=== PATIENT | female | born 1960 | race Caucasian/White ===

== ENCOUNTER 2018-03-18 17:37 | Emergency (ER) | payer OTHER ==
--- NOTE | 2018-03-18 18:15 | ED Physician Documentation ---
Abdominal Pain - HISTORIAN Historian: patient - HPI Stated Complaint: RLQ pain Chief Complaint: Abdominal Pain Additonal Information: rt lower quad abd pain at burneys no guarding or rebound heel tap neg Onset: days ago (2) Duration: constant, waxing, waning Timing: worse Context: denies: out of country travel, bad food, recent trauma Severity: moderate Quality: pain, dull, cramping, sharp, stabbing Associated Symptoms: nausea, diarrhea (no bm for several dauys then diarrhea today). denies: vomiting, bloody emesis Exacerbated by: food Relieved by: remaining still (sitting up worse supine) Further Comments: yes (has been constipated then diarrhea today) - ROS CONST: recent illness GI/: constipation (now diarrhea) - SOCIAL HX Smoking History: non-smoker (quit 6 days ago-prev heavy) Alcohol Use: none Drug Use: none - FAMILY HX Family History: no significant history - PAST HX Past History: other (hi chol copd depdression anxiety) Surgeries/Procedures: cholecystectomy Immunizations: other (rt renal reconstruction) Home Medications: Ambulatory Orders Medication Instructions Recorded Lovastatin 40 mg PO D 03/11/13 Buspirone HCl [Buspar] 1 tab PO BID 05/02/16 Allergies/Adverse Reactions: Allergies Allergy/AdvReac Type Severity Reaction Status Date / Time Penicillins Allergy Intermediate Hives Verified 03/18/18 18:08 Sulfa (Sulfonamide Allergy Intermediate Hives Verified 03/18/18 18:08 Antibiotics) [Sulfa(Sulfonamide Antibiotics)] - VITAL SIGNS Vital Signs: Vital Signs Temp Pulse Resp BP Pulse Ox 96.9 F L 111 H 22 119/90 96 03/18/18 17:37 03/18/18 17:37 03/18/18 17:37 03/18/18 17:37 03/18/18 17:37 - REVIEWED ASSESSMENTS Nursing Assessment Reviewed: Yes Vitals Reviewed: Yes ED Results Lab/Radiology - Lab Results Lab Results: Lab Results 03/18/18 03/18/18 03/18/18 18:25 18:25 18:25 WBC 7.80 K/ul K/ul (4.00-12.00) RBC 5.11 M/ul M/ul (3.90-5.20) Hgb 15.4 g/dL g/dL (12.0-16.0) Hct 45.8 % % (34.5-46.5) MCV 89.6 fl fl (80.0-100.0) MCH 30.2 pg pg (28.0-34.0) MCHC 33.7 g/dL g/dL (30.0-36.0) RDW 12.4 % % (11.3-14.3) Plt Count 266 K/mm3 K/mm3 (130-400) Neut % (Auto) 67.2 % % (39.0-79.0) Lymph % (Auto) 26.9 % % (16.0-50.0) [place] % (Auto) 3.8 % % (0.0-11.0) Eos % (Auto) 0.7 % % (0.0-6.8) Baso % (Auto) 0.3 (0.0-1.5) Neut # (Auto) 5.2 # k/uL # k/uL (1.4-7.7) Lymph # (Auto) 2.1 # k/uL # k/uL (0.6-4.0) [place] # (Auto) 0.3 # k/uL # k/uL (0.0-0.9) Eos # (Auto) 0.1 # k/uL # k/uL (0.0-0.6) Baso # (Auto) 0.0 # k/uL # k/uL (0.0-0.5) Reactive Lymphs % 1.0 % % (0.0-5.0) Reactive Lymphs # 0.1 # k/uL # k/uL (0.0-0.8) Sodium 138 mmol/L mmol/L (136-145) Potassium 3.7 mmol/L mmol/L (3.5-5.1) Chloride 102 mmol/L mmol/L (98-107) Carbon Dioxide 27 mmol/L mmol/L (22-30) BUN 14 mg/dL mg/dL (7-17) Creatinine 1.00 mg/dL mg/dL (0.52-1.04) Estimated Creat Clear 105 Est GFR ( Amer) > 60 (60 - ) Est GFR (Non-Af Amer) > 60 (60 - ) Glucose 96 mg/dL mg/dL (74-106) Calcium 9.3 mg/dL mg/dL (8.4-10.2) Total Bilirubin 0.1 mg/dL L mg/dL (0.2-1.3) AST 19 U/L U/L (15-46) ALT 35 U/L U/L (13-69) Alkaline Phosphatase 79 U/L U/L (38-126) Total Protein 7.5 g/dL g/dL (6.3-8.2) Albumin 4.2 g/dL g/dL (3.5-5.0) Lipase 82 U/L U/L (23-300) - Radiology Radiology Impressions: non specific xray abdomen will do ct abd pelvis.----radiologists called states thinks villous mass inside cecum-rec colonoscopy surgical eval - Orders Orders: ED Orders Category Date Time Status ABD SERIES PA CHEST [RAD] Stat Exams 03/18/[address] ABDOMEN PELVIS C [CT ABD & PELVIS W/ CON] Stat Exams 03/18/18 Taken CBC/PLATELET/DIFF Routine Lab 03/18/18 18:25 Completed CMP Routine Lab 03/18/18 18:25 Completed LIPASE Stat Lab 03/18/18 18:25 Completed URINALYSIS Routine Lab 03/18/18 Ordered Abdominal Pain Physical Exam - Physical Exam General Appearance: moderate distress EENT: eye inspection normal NECK: normal inspection. No: lymphadenopathy RESPIRATORY: no resp distress, chest non-tender, breath sounds normal CVS: reg rate & rhythm, heart sounds normal ABDOMEN: soft, tenderness (rlq no guarding rebound or pos heel tap), decreased BS BACK: normal inspection SKIN: warm/dry, normal color, diaphoresis. No: cyanosis, jaundice, mottled EXTREMITIES: non-tender, normal range of motion NEURO: oriented X3, motor nml, sensation nml, mood/affect nml Vital Signs: Vital Signs Temp Pulse Resp BP Pulse Ox 96.9 F L 111 H 22 119/90 96 03/18/18 17:37 03/18/18 17:37 03/18/18 17:37 03/18/18 17:37 03/18/18 17:37 Discharge Clincal Impression: villous mass inside cecum Referrals: Abena Meeks, OLIVE KNOCKER [Primary Care Provider] - 2 Days Comments: disc cond/findings w/pt she prefers go home will con tact pcp for f/u-we sent lab and ct plus xray reports w/pt. she understands she will need colonoscopy and surgical consultation. we furthur dayan if sy return go to [facility] ED for eval and definitive care. she is clinically much better now and desires go home. Condition: Fair Disposition: 01 HOME, SELF-CARE Decision to Admit: NO Decision Time: 21:18
[2018-03-18 18:46] LABS: BASOPHILS % 0.3 (0.0-1.5); EOSINOPHILS % 0.7 % (0.0-6.8); MEAN CORPUSCULAR HEMOGLOBIN 30.2 pg (28.0-34.0); MEAN CORPUSCULAR VOLUME 89.6 fl (80.0-100.0); MONOCYTES % 3.8 % (0.0-11.0); NEUTROPHILS # 5.2 # k/uL (1.4-7.7)
[2018-03-18 19:13] LABS: eGFR (African) > 60; eGFR (Non-African) > 60
--- NOTE | 2018-03-18 19:31 | Diagnostic Imaging Report ---
NARESH LINDA [facility] [address] [facility] [address] [address] Report Submission Date: March 18, 2018 7:14:27 PM CDT Patient Study Name: YOVANNY RODRIGUEZ Date: March 18, 2018 6:51:43 PM CDT Modality Type: DX Gender: F Description: CHEST,ABDOMEN : 60 Institution: [facility] Physician: NARESH LINDA ABD SERIES W/ PA CHEST History: RIGHT SIDED ABD PAIN X3-4 DAYS, Findings: The heart size is normal. There is no acute infiltrates. There is no pleural effusion or pneumothorax identified. Calcified granuloma seen the left upper lobe. The bowel gas pattern is normal. Cholecystectomy clips are in place. No free air. Impression: 1. No acute pulmonary disease. 2. Normal bowel gas pattern. Electronically signed on March 18, 2018 7:14:27 PM CDT by: Silver MACHADO
[2018-03-18 21:41] VITALS: BP 119/74
--- NOTE | 2018-03-19 16:52 | Diagnostic Imaging Report ---
NARESH RASMUSSEN [facility] [address] [facility] [address] [place], [place]. [address] Report Submission Date: March 18, 2018 8:19:58 PM CDT Patient Study Name: YOVANNY RODRIGUEZ Date: March 18, 2018 7:45:06 PM CDT Modality Type: CT\SR Gender: F Description: CT ABD PELVIS W/ CON : 60 Institution: [facility] Physician: NARESH RASMUSSEN Computed tomography Abdomen/pelvis with contrast History: 4 days of right lower quadrant pain Findings: Transverse abdomen and pelvis sections are obtained 93 mL intravenous omnipaque 350. Minimal bibasilar atelectasis, cholecystectomy, small left renal cysts, right perinephric surgical clips, mild bilateral renal cortical atrophy, and minimal atherosclerosis are observed. 1.3 cm left adrenal nodule, 1.6 centimeter right adrenal nodule, and 0.8 centimeter right adrenal nodule are observed. Small splenic cysts are present. The pancreas and liver are unremarkable. A 6.5 x 3.3 x 6.2 cm villous appearing enhancing mass is present in the cecum. There is soft tissue thickening or fluid in the ileocecal valve. Fluid is present in normal caliber small bowel loops. There is no evidence of mesenteric adenopathy. Pelvic sections reveal decompressed urinary bladder. Uterus and ovaries are normal in size. Pelvic bowel loops are unremarkable. The appendix is not identified. Impression: 1. Villous mass in the cecum. Recommend colonoscopy. There is soft tissue thickening or fluid in the ileocecal valve region. 2. Mild bilateral renal cortical scarring and right perinephric surgical clips. 3. Bilateral adrenal nodules. Most incidental and renal nodules are adenomas. Critical results discussed with Dr. Rasmussen at [facility] [employer]. Electronically signed on March 18, 2018 8:19:58 PM CDT by: Charles MACHADO
== END 2018-03-18 21:15 | disposition home or self-care (01) ==
LOC: ED 17:37
DX: K63.89 Other specified diseases of intestine (principal)
CPT/HCPCS: 74022; 74177; 80053; 83690; 85025; Q9967; S1016

== ENCOUNTER 2019-08-04 07:58 | Emergency (ER) | payer OTHER ==
[2019-02-07 22:19] VITALS: BP 136/64
[2019-08-04] MEDS ORDERED: KETOROLAC TROMETHAMINE 60 MG/2 ML VIAL IM ONE (09:35)
--- NOTE | 2019-08-23 11:53 | Diagnostic Imaging Report ---
ROJAS LERNER [facility] [address] [facility].[address] [address] Report Submission Date: Aug 04, 2019 7:09:46 PM CDT Patient Study Name: YOVANNY RODRIGUEZ Date: Aug 04, 2019 6:16:27 PM CDT Modality Type: DX Gender: F Description: FOOT 3 VIEWS OR MORE : 60 Institution: [facility] Physician: ROJAS LERNER Exam: Left foot. History: Fall. AP, lateral and oblique view of the left foot are submitted. 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 an acute bony avulsion through the superior aspect of the talus is noted. No other signs of fracture or dislocation is seen. Soft tissue swelling over the midfoot is noted. Impression: Acute bony avulsion off the superior aspect of the talus. Electronically signed on Aug 04, 2019 7:09:46 PM CDT by: Kt MACHADO
--- NOTE | 2019-08-23 11:54 | Diagnostic Imaging Report ---
ROJAS LERNER [facility] [address] [facility].[address] [address] Report Submission Date: Aug 04, 2019 7:10:25 PM CDT Patient Study Name: YOVANNY RODRIGUEZ Date: Aug 04, 2019 6:16:27 PM CDT Modality Type: DX Gender: F Description: ANKLE 3 VIEWS OR MORE : 60 Institution: [facility] Physician: ROJAS LERNER Exam: Left ankle. History: Fall. AP, lateral and mortise view of the left ankle are submitted. Acute bony avulsion off the superior aspect of the talus is noted. No other signs of fracture or dislocation is seen. Mild soft tissue swelling about the ankle is noted. Impression: Acute bony avulsion off the anterior aspect of the talus. Electronically signed on Aug 04, 2019 7:10:25 PM CDT by: Kt MACHADO
== END 2019-08-04 19:45 | disposition home or self-care (01) ==
LOC: ED 07:58
DX: S99.912A Unspecified injury of left ankle, initial encounter (principal); W01.198A Fall on same level from slipping, tripping and stumbling with subsequent striking against other object, initial encounter
CPT/HCPCS: 73610; 96372; 99283; J1885

== ENCOUNTER 2019-09-25 09:50 | Outpatient (CLI) | payer OTHER ==
[2019-02-07 22:19] VITALS: BP 136/64
--- NOTE | 2019-09-25 10:38 | Diagnostic Imaging Report ---
PATIENT MR#: [id number] PATIENT PATIENT NAME: YOVANNY RODRIGUEZ DATE OF : 1960 REFERRING PHYSICIAN: CORINNE RUBALCAVA EXAM DATE: 09/25/2019 ACCESSION NUMBER: [id number] EXAM DESCRIPTION: ANKLE 3 VIEWS OR MORE 3 views of the left ankle History: ORDER STATES COMKPARE LT FOOT AND LT ANKLE WITH PREVIOUS IMAGES PT STATES BROKE LT FOOT IN O CT. NOT HEALING PRIOR EXAMS TAKEN ON 08/04/2019 AND 02/07/2019 the Comparison: August 04, 2019 and February 07, 2019 There is significant soft tissue swelling of the left ankle, ankle mortise is intact. The previously described avulsion fracture at the superior aspect of the talus again noted without significant change Impression: Significant soft tissue swelling of ankle is present. No dislocation. Previously described avulsion f racture at the superior aspect of the talus is noted without significant change. Read by: Dr. Naima Dolan Transcribed by: Transcribed Date: Electronically signed by: Dr. Naima Dolan Date signed: 09/25/2019 10:37:26 AM
--- NOTE | 2019-09-25 10:42 | Diagnostic Imaging Report ---
PATIENT MR#: [id number] PATIENT PATIENT NAME: YOVANNY RODRIGUEZ DATE OF : 1960 REFERRING PHYSICIAN: CORINNE RUBALCAVA EXAM DATE: 09/25/2019 ACCESSION NUMBER: [id number] EXAM DESCRIPTION: FOOT 3 VIEWS OR MORE 3 views of the left foot History: ORDER STATES COMKPARE LT FOOT AND LT ANKLE WITH PREVIOUS IMAGES PT STATES BROKE LT FOOT IN O CT. NOT HEALING PRIOR EXAMS TAKEN ON 08/04/2019 AND 02/07/2019 Comparison: 08/04/2019 AND 02/07/2019 There is diffuse soft tissue swelling of the left ankle and foot. Previously described avulsion fract ure at the superior aspect of the talus is again noted without significant change Impression: 1. Significant soft tissue swelling of left foot and ankle is present, previous avulsion fracture at the superior aspect of the talus is noted without significant change, slightly different orientation, could be positional . Read by: Dr. Naima Dolan Transcribed by: Transcribed Date: Electronically signed by: Dr. Naima Dolan Date signed: 09/25/2019 10:41:26 AM
== END 2019-09-25 10:00 ==
LOC: RAD 09:50
PROVIDERS: ATTEND Podiatrist Foot & Ankle Surgery
DX: M25.572 Pain in left ankle and joints of left foot (principal)
CPT/HCPCS: 73610; 73630

== ENCOUNTER 2019-11-02 14:13 | Outpatient (CLI) | payer OTHER ==
[2019-02-07 22:19] VITALS: BP 136/64
--- NOTE | 2019-11-02 22:15 | Diagnostic Imaging Report ---
PATIENT MR#: [id number] PATIENT PATIENT NAME: YOVANNY RODRIGUEZ DATE OF : 1960 REFERRING PHYSICIAN: Abena Meeks EXAM DATE: 11/02/2019 ACCESSION NUMBER: [id number] EXAM DESCRIPTION: CHEST 2VIEW HISTORY: SOB X1 WEEK, COUGHING, R/O PNEUMONIA. COMPARISON: March 18, 2018. CHEST RADIOGRAPH, FRONTAL AND LATERAL: Upper mediastinum: Not widened. Heart: No cardiomegaly. Lungs: Interval appearance of lingular infiltrate. Stable appearance of 1.4 cm calcified granuloma of the left midlung, with multiple left hilar calcified lymph nodes. No pulmonary edema, pneumothorax or significant effus ion. Skeleton: Thoracic spondylosis. IMPRESSION: 1. Lingular infiltrate. 2. Calcified left hilar lymph nodes and calcified pulmonary granuloma consistent with prior granuloma tous infection, similar to prior. Read by: Dr. Fer Harris Transcribed by: Fer Harris Transcribed Date: 11/02/2019 10:12:36 PM Electronically signed by: Dr. Fer Harris Date signed: 11/02/2019 10:14:09 PM
== END 2019-11-02 14:23 ==
LOC: RAD 14:13
PROVIDERS: ATTEND Nurse Practitioner Family
DX: J44.9 Chronic obstructive pulmonary disease, unspecified (principal)